=== PATIENT | female | born 1965 | race Two or more races ===

== ENCOUNTER 2017-06-28 17:26 | Emergency (ER) | payer BC ==
[2017-06-28] MEDS ORDERED: IPRATROPIUM/ALBUTEROL 0.5-2.5 MG/3 ML AMPUL NEB ONE (18:33)
[2017-06-28] MEDS ORDERED: DEXAMETHASONE SOD PHOS INJ 10 MG/1 ML VIAL IM ONE (18:33)
--- NOTE | 2017-06-28 18:37 | ER Document Report ---
HPI - HPI Pain Level: 2 Notes: Patient is a 52-year-old female with a history of asthma and allergies who presents to the ED complaining of a dry nonproductive cough, wheeze, nasal congestion/discharge, postnasal drip 1 day. Patient states that she has had recurrence of these symptoms over the last couple months. Patient states that she is visiting from [place] and has been treated with steroids and antibiotics the most recent antibiotics 1 month ago. Patient states that antibiotics seem to help for a week or 2, but symptoms begin to return thereafter. Patient states that she has been using her inhaler as directed. She is eating and drinking without any difficulties. She is urinating normally and having normal bowel movements. Patient states that she is ambulatory without any dyspnea on exertion or development of chest pains. Patient has had 1-2 episodes of posttussive emesis. She denies any drug allergies. Denies any headache, fever , neck pain, sore throat, chest pain, palpitations, syncope, shortness of breath , dyspnea, abdominal pain, nausea/vomiting/diarrhea, urinary retention, dysuria , hematuria, or rash. - ROS Systems Reviewed and Negative: Yes All other systems reviewed and negative Past Medical History - Social History Smoking Status: Never Smoker Chew tobacco use (# tins/day): No Frequency of alcohol use: None Drug Abuse: None Family History: Reviewed & Not Pertinent Patient has suicidal ideation: No Patient has homicidal ideation: No Renal/ Medical History: Denies: Hx Peritoneal Dialysis Vertical Provider Document - CONSTITUTIONAL Agree With Documented VS: Yes Notes: PHYSICAL EXAMINATION: GENERAL: Well-appearing, well-nourished and in no acute distress. A&Ox4. Speaks in full sentences w/o difficulty. Dry cough heard. Vitals: HR 84 and Pulse ox of 94% on RA. HEAD: Atraumatic, normocephalic. EYES: Pupils equal round and reactive to light, extraocular movements intact, sclera anicteric, conjunctiva are normal. ENT: EAC clear b/l. TM's intact b/l without erythema, fluid, or perforation. Nares patent and without discharge. oropharynx clear without exudates. No tonsilar hypertrophy or erythema. Moist mucous membranes. No sinus tenderness. NECK: Normal range of motion, supple without lymphadenopathy. No rigidity/ meningismus. LUNGS: wheezing b/l. HEART: Regular rate and rhythm without murmurs, rubs, gallops. Musculoskeletal: FROM to passive/active. Strength 5+/5. Extremities: No cyanosis, clubbing, or edema b/l. Peripheral pulses 2+. Capillary refill less than 3 seconds. NEUROLOGICAL: Normal speech, normal gait. Normal sensory, motor exams PSYCH: Normal mood, normal affect. SKIN: Warm, Dry, normal turgor, no rashes or lesions noted. - INFECTION CONTROL TRAVEL OUTSIDE OF THE [place] IN LAST 30 DAYS: No - RESPIRATORY O2 Sat by Pulse Oximetry: 92 Course - Re-evaluation Re-evalutation: 06/28/17 21:25 Patient is an afebrile, well-hydrated, 52-year-old female who presents to the ED with acute asthma exacerbation and URI, suspect viral. Vitals are stable. PE is otherwise unremarkable. Chest x-ray was unremarkable for any acute pathology. No other labs or imaging warranted at this time based on H&P. Patient was given 1 to DuoNeb treatment, one albuterol treatment, and Decadron. Patient states that she feels much better and her respiratory symptoms have resolved. Patient does have an inhaler at home that she will use regularly. Patient states that she is ready to go home at this time. Patient is able to ambulate the hallway without becoming short of breath and maintaining an oxygen saturation between 93-95%. Patient is at 95% on room air at rest while maintaining a heart rate in the 80s. Low suspicion for any ACS, PE, pneumothorax, pericarditis, dissection, respiratory compromise, severe dehydration, sepsis, meningitis, or other systemic emergent condition at this time. Patient is aware that her condition can change from initial presentation and she needs to monitor symptoms closely and seek medical attention for any acute changes. Recommend conservative measures for symptoms. Recheck with your PCM in 3-5 days. Return to the ED with any worsening/concerning symptoms otherwise as reviewed in discharge. Patient is in agreement. - Vital Signs Vital signs: Temp Pulse Resp BP Pulse Ox 99.1 F 85 16 143/89 H 92 06/28/17 17:31 06/28/17 17:31 06/28/17 17:31 06/28/17 17:31 06/28/17 17:31 Discharge - Discharge Clinical Impression: Acute URI Asthma exacerbation Qualifiers: Asthma severity: mild Asthma persistence: intermittent Qualified Code(s): J45.21 - Mild intermittent asthma with (acute) exacerbation Condition: Stable Disposition: HOME, SELF-CARE Instructions: Asthma ([facility]), Steroid Medication Injection, Upper Respiratory Illness ([facility]) Additional Instructions: Maintain adequate fluid intake Take meds as directed Use inhaler regularly/as needed tylenol/ibuprofen as needed over the counter cold medication as needed for symptoms Humidified air may help Wash your hands regularly Wear a mask when coughing F/u: with your PCM in 3-5 days for a recheck Return to the ED with any fever, worsening pain, chest pain, palpitations, syncope, worsening MCKEON, neck pain/stiffness, shortness of breath, wheezing, drooling, trouble swallowing/breathing, abdominal pain, n/v/d, rash, or worsening/concerning symptoms otherwise. Forms: Elevated Blood Pressure Referrals: [facility]AL[facility],NO [Primary Care Provider] - Follow up in 3-5 days
--- NOTE | 2017-06-28 19:36 | RADIOLOGY REPORT (SQ) ---
EXAM DESCRIPTION: CHEST PA/LAT COMPLETED DATE/TIME: 06/28/2017 7:27 pm REASON FOR STUDY: cough COMPARISON: None. EXAM PARAMETERS: NUMBER OF VIEWS: two views TECHNIQUE: Digital Frontal and Lateral radiographic views of the chest acquired. RADIATION DOSE: NA LIMITATIONS: none FINDINGS: LUNGS AND PLEURA: No opacities, masses or pneumothorax. No pleural effusion. MEDIASTINUM AND HILAR STRUCTURES: No masses or contour abnormalities. HEART AND VASCULAR STRUCTURES: Heart normal size. No evidence for failure. BONES: No acute findings. HARDWARE: None in the chest. OTHER: No other significant finding. IMPRESSION: NO SIGNIFICANT RADIOGRAPHIC FINDING IN THE CHEST. TECHNICAL DOCUMENTATION: JOB ID: [id number] [employer]- All Rights Reserved Reading location - IP/workstation name: [email or web address]
[2017-06-28] MEDS ORDERED: ALBUTEROL SULFATE 0.083% NEB 2.5 MG/3 ML AMPUL NEB ONE (20:36)
[2017-06-28 21:52] VITALS: BP 133/76
== END 2017-06-28 21:50 | disposition home or self-care (01) ==
LOC: ER 17:26
DX: J06.9 Acute upper respiratory infection, unspecified (principal); J45.21 Mild intermittent asthma with (acute) exacerbation; R05 Cough; R09.81 Nasal congestion; R09.89 Other specified symptoms and signs involving the circulatory and respiratory systems; R09.82 Postnasal drip; R11.10 Vomiting, unspecified
CPT/HCPCS: 99283; 71046; J1100; J7620

== ENCOUNTER 2017-09-14 00:13 | Emergency (ER) | payer BC ==
[2017-09-14 00:22] VITALS: BP 145/77
[2017-09-14] MEDS ORDERED: PREDNISONE 20 MG TABLET PO ONE (00:38)
[2017-09-14] MEDS ORDERED: IPRATROPIUM/ALBUTEROL 0.5-2.5 MG/3 ML AMPUL NEB ONE ×2 (00:38→02:01)
--- NOTE | 2017-09-14 00:40 | ER Document Report ---
ED General - General Chief Complaint: Asthma Exacerbation Stated Complaint: DIFFICULTY BREATHING Time Seen by Provider: 09/14/17 00:34 Notes: Patient is a 52-year-old female who is a non-smoker who presents with some congestion and wheezing. Says she has a history of asthma. She said she was actually diagnosed in 2017 which is atypical to be diagnosed with late life and asthma but she is never been a smoker and says that was what her diagnosis is. She occasionally has used a nebulizer. Today she has been using her nebulizer has not been helping and her wheezing is worsened and her difficulty breathing and coughing is worsened. She denies any objective fevers but says she noticed a small fever blister on her lips with says that she might of had a fever. She denies any vomiting. No chest pain. No abdominal pain. She is not diabetic. She denies any medical allergies. She has no other complaints at this time. TRAVEL OUTSIDE OF THE [place] IN LAST 30 DAYS: No - Related Data Allergies/Adverse Reactions: No Known Allergies Allergy (Verified 06/28/17 18:04) Past Medical History - Social History Smoking Status: Never Smoker Frequency of alcohol use: None Drug Abuse: None Family History: Reviewed & Not Pertinent Renal/ Medical History: Denies: Hx Peritoneal Dialysis Review of Systems - Review of Systems Notes: My Normal Review Basic REVIEW OF SYSTEMS: CONSTITUTIONAL : Denies fever, chills, or sweats. Denies recent illness. EENT: Nasal congestion CARDIOVASCULAR: Denies chest pain. RESPIRATORY: Cough and wheezing GASTROINTESTINAL: Denies abdominal pain. Denies nausea, vomiting, or diarrhea. Denies constipation. Last BM: NEUROLOGICAL: Denies altered mental status or loss of consciousness. ALL OTHER SYSTEMS REVIEWED AND NEGATIVE. Physical Exam - Vital signs Vitals: Temp Pulse Resp BP Pulse Ox 99.1 F 88 20 145/77 H 93 09/14/17 00:18 09/14/17 00:18 09/14/17 00:18 09/14/17 00:18 09/14/17 00:18 - Notes Notes: General Appearance: Well nourished, alert, cooperative, no acute distress, no obvious discomfort. Audible nasal congestion on exam. Dry cough during exam. Vitals: reviewed, See vital signs table. Eyes: PERRL, EOMI, Conjuctiva clear Mouth: No decreasd moisture Throat: No tonsillar inflammation, No airway obstruction, No lymphadenopathy Neck: Supple, no neck tenderness, No thyromegaly Lungs: Diffuse wheezing, No rales, No rhonci, No accessory muscle use, failure air exchange bilaterally. Heart: Normal rate, Regular rythm, No murmur, no rub Skin: warm, dry, appropriate color, no rash Neuro: speech clear, oriented x 3, normal affect, responds appropriately to questions. Course - Re-evaluation Re-evalutation: 09/14/17 02:12 After first neb laser treatment patient is feeling much improved. On re- auscultation of her lung hamlin she still has some tightness and wheezing although it is improved from when she first arrived. I will give her another DuoNeb treatment and then reassess. 09/14/17 03:11 Patient continues to feel much improved her lung hamlin are now clear. I feel she is safe to be discharged home. She says she has plenty of nebulizer vials at home does not need any refills of this. I will place her on prednisone. I encouraged her return to ER immediately if she has recurrent difficulty breathing, intractable wheezing, or she feels that she is worse in any way. Patient agrees with plan will be discharged home. Dictation of this chart was performed using voice recognition software; therefore, there may be some unintended grammatical errors. - Vital Signs Vital signs: Temp Pulse Resp BP Pulse Ox 99.1 F 88 20 145/77 H 93 09/14/17 00:18 09/14/17 00:18 09/14/17 00:18 09/14/17 00:18 09/14/17 00:18 Discharge - Discharge Clinical Impression: Bronchitis Condition: Good Disposition: HOME, SELF-CARE Additional Instructions: BRONCHITIS WITH BRONCHOSPASM (WHEEZING): You have bronchitis with bronchospasm (wheezing). Sometimes people develop wheezing with a chest cold. This occurs either because of an underlying tendency toward asthma or because the virus itself irritates the bronchial tubes. This irritation causes cough, shortness of breath, and wheezing. Emergency treatment of bronchospasm may include adrenaline shots or bronchodilator aerosol. You may feel lightheaded and have a rapid pulse for an hour or two. Rest and get plenty of fluids. At home, we'll treat you with a bronchodilator inhaler. Corticosteroids may be required for some patients. Until you recover, avoid chemical fumes, dusts, pollens, and exercising in very cold or dry air. If you smoke, stop now! Most cases of bronchitis get better without antibiotics. We prescribe antibiotics when we believe bacteria are damaging your airways, or if there's high risk the bronchitis will worsen into pneumonia. Increase your fluid intake. A cool mist humidifier may make your lungs more comfortable. An expectorant (cough medicine that loosens phlegm) can help. Repeated episodes of bronchitis and bronchospasm may result in lung damage -- for example, chronic bronchitis, recurrent pneumonias, or emphysema. If you develop a fever, increased wheezing, chest pain, or severe shortness of breath, you should contact the doctor immediately. INHALED BRONCHODILATORS: You have received a treatment of and/or prescription for an inhaled bronchodilator -- a medication which stimulates the airways in the lung to dilate. This improves the flow of air in asthma, bronchitis, and emphysema. These medicines have some similarity to adrenaline, and can cause similar side effects: shakiness, racing heart, and a sense of nervousness. These side effects decrease with time. Contact your doctor if these side effects are severe. Do not over-use the medicine. Too-frequent use of the inhaler may make it ineffective. Call your doctor if the inhaler is not controlling your symptoms at the prescribed doses. STEROID MEDICATION: You have been given an injection of or oral medicine of the cortisone/ steroid class. This medication is used to control inflammation or allergy. Kris t is usually only given for a short period of time, until the acute process subsides. There are usually no side effects from short-term use of cortisone-like medications. Some persons feel an increased sense of well-being and are not sleepy at bedtime. Long-term use of cortisone medications is best avoided, unless required for a severe condition. If your condition does not remit, or relapses after the course of corticosteroid medication, you should consult your physician. FOLLOW-UP CARE: If you have been referred to a physician for follow-up care, call the physician s office for an appointment as you were instructed or within the next two days. If you experience worsening or a significant change in your symptoms, notify the physician immediately or return to the Emergency Department at any time for re-evaluation. Please use your nebulizer as prescribed. please take the Prednisone as prescribed. please return to the ER immediately if you develop fevers, recurrent wheezing difficulty breathing not responding to your inhaler, or if you feel that you are worsening in anyway. Please follow up with your doctor on Monday for reevaluation. Prescriptions: Prednisone [Deltasone 20 mg Tablet] 3 tab PO DAILY 4 Days tablet Forms: Return to Work
== END 2017-09-14 03:29 | disposition home or self-care (01) ==
LOC: ER 00:13
DX: J45.909 Unspecified asthma, uncomplicated (principal); R05 Cough; R09.81 Nasal congestion
CPT/HCPCS: 94640 ×2; 99284; J7512; J7620